=== PATIENT | female | born 1970 | race American Indian/Alaskan Native ===

== ENCOUNTER 2018-08-11 19:32 | Emergency (ER) | payer OTHER ==
--- NOTE | 2018-08-11 20:50 | Emergency Department Report ---
Blank Doc - Documentation Documentation: 48 y/o female rt ear pain and cough times 4 days. Had MRI on Tuesday of her lo louisa abd. Pain 09/11 to 11/11 . PMH none. LMP menopause.
[2018-08-11 21:22] LABS: Basophils % (Auto) 0.4 % (0.0-1.8); Eosinophils # (Auto) 0.1 K/mm3 (0.0-0.4); Eosinophils % (Auto) 1.3 % (0.0-4.3); Hematocrit 42.6 % (30.3-42.9); Hemoglobin 13.8 gm/dl (10.1-14.3); Lymphocytes # (Auto) 2.5 K/mm3 (1.2-5.4); Lymphocytes % (Auto) 27.5 % (13.4-35.0); Mean Corpuscular HGB Conc 32 % (30-34); Mean Corpuscular Volume 76 fl (79-97); Monocytes # (Auto) 0.9 K/mm3 (0.0-0.8); Monocytes % (Auto) 9.4 % (0.0-7.3); Platelet Count 370 K/mm3 (140-440); Red Blood Count 5.58 M/mm3 (3.65-5.03); Red Cell Distribution Width 17.3 % (13.2-15.2)
[2018-08-11 21:52] LABS: Alanine Aminotransferase 24 units/L (7-56); Albumin 4.2 g/dL (3.9-5); BUN/Creatinine Ratio 13; Blood Urea Nitrogen 10 mg/dL (7-17); Calcium 9.7 mg/dL (8.4-10.2); Hemolysis Index 12
--- NOTE | 2018-08-11 23:10 | XRay Report ---
PROCEDURE: XR CHEST ROUTINE 2V TECHNIQUE: PA and lateral chest radiographs were obtained. HISTORY: cough COMPARISONS: None. FINDINGS: Heart: Normal. Mediastinum/Vessels: Normal. Lungs/Pleural space: Normal. Bony thorax: No acute osseous abnormality. IMPRESSION: Normal examination. This document is electronically signed by Agata Toribio DO., Aug 11 2018 11:08:11 PM ET
--- NOTE | 2018-08-12 00:54 | Emergency Department Report ---
- General Chief Complaint: Upper Respiratory Infection Stated Complaint: CP/R EAR PAIN/WEAKNESS Time Seen by Provider: 08/12/18 00:45 Source: patient Mode of arrival: Ambulatory Limitations: No Limitations - History of Present Illness Initial Comments: Patient is a 48-year-old AA female with no past medical history who presents to the ED with complaint of acute onset persistent nasal and sinus congestion, dry cough, headache, severe right ear pain and anterior cervical lymph node pain for the last 2 days. Patient denies dizziness, hearing loss, fever, chills, nausea, vomiting, chest pain, shortness of breath, change in vision, sore throat, abdominal pain or palpitations. Patient states that she tried to take [id number] medication with no relief. Patient also states that no one else at home has had similar symptoms. MD Complaint: cough, rhinorrhea, nasal congestion, sinus pain, other (right ear pain) -: Sudden, days(s) (2) Severity: severe Severity scale (0 -10): 7 Quality: sharp, aching Consistency: constant Improves With: nothing Worsens With: nothing Associated Symptoms: myalgias, headache, rhinorrhea, nasal congestion, cough, e ar pain (right). denies: fever, chills, diaphoresis, sore throat, stiff neck, chest pain, shortness of breath, abdominal pain, nausea, vomiting, diarrhea, dysuria, rash, confusion, right sweats, epistaxis, hoarseness Treatments Prior to Arrival: none - Related Data Previous Rx's Medication Instructions Recorded Last Taken Type Amoxicillin/Potassium Clav 1 each PO Q12H #20 tablet 08/12/18 Unknown Rx [Augmentin 875-125 Tablet] Benzonatate [Tessalon Perles] 100 mg PO Q8HR #30 capsule 08/12/18 Unknown Rx Ibuprofen [Motrin] 800 mg PO Q8HR PRN #20 tablet 08/12/18 Unknown Rx Ofloxacin 0.3% [Floxin] 1 drop OT Q12H #5 ml 08/12/18 Unknown Rx methylPREDNISolone [Medrol] 4 mg PO DAILY #21 tab.ds.pk 08/12/18 Unknown Rx ED Review of Systems ROS: Stated complaint: CP/R EAR PAIN/WEAKNESS Other details as noted in HPI Comment: All other systems reviewed and negative Constitutional: no symptoms reported, see HPI. denies: chills, diaphoresis, fever, malaise, weakness Eyes: as per HPI. denies: eye pain, eye discharge, vision change ENT: as per HPI, ear pain (right), congestion. denies: throat pain, dental pain, hearing loss, epistaxis Respiratory: no symptoms reported, see HPI, cough. denies: orthopnea, shortness of breath, SOB with exertion, SOB at rest, wheezing Cardiovascular: as per HPI. denies: chest pain, palpitations, dyspnea on exertion, edema, syncope, paroxysmal nocturnal dyspnea Endocrine: no symptoms reported, see HPI. denies: excessive sweating, flushing, intolerance to cold, intolerance to heat, increased hunger, increased thirst, increased urine, unexplained weight loss Gastrointestinal: as per HPI. denies: abdominal pain, nausea, vomiting, diarrhea, constipation, hematemesis, hematochezia Genitourinary: as per HPI. denies: urgency, dysuria, frequency, hematuria, abnormal menses, dyspareunia Musculoskeletal: as per HPI. denies: back pain, joint swelling, arthralgia, myalgia Skin: as per HPI. denies: rash, lesions, change in color, change in hair/nails Neurological: as per HPI, headache. denies: weakness, numbness, paresthesias, confusion, abnormal gait, vertigo Psychiatric: as per HPI Hematological/Lymphatic: as per HPI ED Past Medical Hx - Past Medical History Previous Medical History?: No - Surgical History Past Surgical History?: No - Social History Smoking Status: Never Smoker Substance Use Type: None - Medications Home Medications: Home Medications Medication Instructions Recorded Confirmed Last Taken Type Amoxicillin/Potassium Clav 1 each PO Q12H #20 tablet 08/12/18 Unknown Rx [Augmentin 875-125 Tablet] Benzonatate [Tessalon Perles] 100 mg PO Q8HR #30 capsule 08/12/18 Unknown Rx Ibuprofen [Motrin] 800 mg PO Q8HR PRN #20 tablet 08/12/18 Unknown Rx Ofloxacin 0.3% [Floxin] 1 drop OT Q12H #5 ml 08/12/18 Unknown Rx methylPREDNISolone [Medrol] 4 mg PO DAILY #21 tab.ds.pk 08/12/18 Unknown Rx ED Physical Exam - General Limitations: No Limitations General appearance: alert, in no apparent distress - Head Head exam: Present: atraumatic, normocephalic, normal inspection - Eye Eye exam: Present: normal appearance, PERRL, EOMI. Absent: scleral icterus, conjunctival injection, periorbital swelling, periorbital tenderness Pupils: Present: normal accommodation - ENT ENT exam: Present: normal orophraynx, mucous membranes moist, normal external ear exam, other (Erythematous, swollen right tympanic membrane, grossly congested nasal passages) - Neck Neck exam: Present: normal inspection, full ROM, lymphadenopathy (right cervical). Absent: tenderness, meningismus - Respiratory Respiratory exam: Present: normal lung sounds bilaterally. Absent: respiratory distress, wheezes, rales, rhonchi, chest wall tenderness, accessory muscle use, decreased breath sounds, prolonged expiratory - Cardiovascular Cardiovascular Exam: Present: normal rhythm, tachycardia, normal heart sounds. Absent: systolic murmur, diastolic murmur - GI/Abdominal GI/Abdominal exam: Present: soft, normal bowel sounds. Absent: distended, tenderness, guarding, rebound, hyperactive bowel sounds, hypoactive bowel sounds, organomegaly - Extremities Exam Extremities exam: Present: normal inspection, full ROM, normal capillary refill - Back Exam Back exam: Present: normal inspection, full ROM. Absent: tenderness, CVA tenderness (R), CVA tenderness (L), muscle spasm, paraspinal tenderness - Neurological Exam Neurological exam: Present: alert, oriented X3, CN II-XII intact, normal gait, reflexes normal - Psychiatric Psychiatric exam: Present: normal affect - Skin Skin exam: Present: warm, dry, intact, normal color ED Course Vital Signs 08/11/18 19:53 Temperature 99.4 F Pulse Rate 105 H Respiratory 18 Rate Blood Pressure 157/89 O2 Sat by Pulse 97 Oximetry - Reevaluation(s) Reevaluation #1: 08/12/18 00:55 Patient is alert and oriented 3 and is not in distress with normal vital signs. Lab test results were reviewed and are unremarkable. Chest x-ray shows no acute cardiopulmonary abnormalities. Patient was treated for pain in the ED and on reevaluation, patient's pain is moderately controlled. Based on the physical exam findings, the patient was discharged home on pain medications and antibiotics, advised follow-up with her primary care physician in 7-10 days for reevaluation. Patient is advised to return to ED immediately if symptoms get worse. 08/12/18 00:57 ED Medical Decision Making - Lab Data Result diagrams: 08/11/18 21:07 08/11/18 21:07 - Radiology Data Radiology results: report reviewed, image reviewed No acute cardiopulmonary abnormalities - Medical Decision Making Patient is alert and oriented 3 and is not in distress with normal vital signs. Lab test results were reviewed and are unremarkable. Chest x-ray shows no acute cardiopulmonary abnormalities. Patient was treated for pain in the ED and on reevaluation, patient's pain is moderately controlled. Patient's symptoms are likely due to acute upper respiratory infection, complicated by acute otitis media and bronchitis. Therefore based on the physical exam findings, the patient was discharged home on pain medications and antibiotics, advised follow- up with her primary care physician in 7-10 days for reevaluation. Patient is advised to return to ED immediately if symptoms get worse. - Differential Diagnosis acute upper resp. Acute bronchitis, acute otitis media, Lymphadenopathy Critical care attestation.: If time is entered above; I have spent that time in minutes in the direct care of this critically ill patient, excluding procedure time. ED Disposition Clinical Impression: Acute upper respiratory infection, Acute otitis media with effusion of right ear, Lymphadenopathy of right cervical region Acute bronchitis Qualifiers: Bronchitis organism: unspecified organism Qualified Code(s): J20.9 - Acute bronchitis, unspecified Disposition: - TO HOME OR SELFCARE Is pt being admited?: No Does the pt Need Aspirin: No Condition: Stable Instructions: Lymphadenopathy (ED), Otitis Media (ED), Upper Respiratory Infection (ED), Acute Bronchitis (ED) Additional Instructions: Take medications with food, drink plenty of fluids and follow up with your primary care physician in 7-10 days for reevaluation. Return to the ED immediately if symptoms get worse. Prescriptions: Amoxicillin/Potassium Clav [Augmentin 875-125 Tablet] 1 each PO Q12H #20 tablet Ofloxacin 0.3% [Floxin] 1 drop OT Q12H #5 ml methylPREDNISolone [Medrol] 4 mg PO DAILY #21 tab.ds.pk Ibuprofen [Motrin] 800 mg PO Q8HR PRN #20 tablet PRN Reason: Pain , Severe (7-10) Benzonatate [Tessalon Perles] 100 mg PO Q8HR #30 capsule Referrals: JAME VALLADARES MD [Primary Care Provider] - 3-5 Days Time of Disposition: 01:05 Print Language: MALDIVIAN
[2018-08-12 01:02] LABS: Bacteria,Urine 1+ /HPF (Negative); Bilirubin,Urine NEG (Negative); Blood,Urine MOD (Negative); Color,Urine Yellow (Yellow); Hyaline Casts,Urine 1 /LPF; Protein,Urine <15 mg/dL mg/dL (Negative); Urobilinogen,Urine < 2.0 mg/dL (<2.0); WBC,Urine < 1.0 /HPF (0.0-6.0)
[2018-08-12] MEDS ORDERED: IBUPROFEN PO ONE (01:12)
[2018-08-12] MEDS ORDERED: DELTASONE PO ONE (01:13)
[2018-08-12 02:31] VITALS: BP 122/73
== END 2018-08-12 02:31 | disposition home or self-care (01) ==
LOC: ED 19:32
DX: J20.9 Acute bronchitis, unspecified (principal); H65.191 Other acute nonsuppurative otitis media, right ear; J06.9 Acute upper respiratory infection, unspecified; R59.0 Localized enlarged lymph nodes
CPT/HCPCS: 36415; 71046; 80053; 81001; 85025; 99283; J7512